=== PATIENT | female | born 1950 | race Hispanic/Latino ===

== ENCOUNTER 2018-08-20 11:39 | Day surgery (SDC) | payer MEDICARE ==
[~2018-08-20 11:39] MED LIST: IOPIDINE ONE; MYDRIACYL ONE; NEOFRIN ONE
[2018-08-20] MEDS ORDERED: MYDRIACYL OD ONE (11:55)
[2018-08-20] MEDS ORDERED: IOPIDINE OD ONE ×2 (11:55→13:00)
[2018-08-20] MEDS ORDERED: NEOFRIN OD ONE (11:55)
[2018-08-20 13:13] VITALS: BP 153/87
== END 2018-08-20 13:03 | disposition home or self-care (01) ==
LOC: OR 11:39
PROVIDERS: ATTEND Specialist
DX: H26.491 Other secondary cataract, right eye (principal); Z79.899 Other long term (current) drug therapy; Z98.41 Cataract extraction status, right eye; Z98.42 Cataract extraction status, left eye; Z90.710 Acquired absence of both cervix and uterus; Z72.89 Other problems related to lifestyle; Z98.890 Other specified postprocedural states

== ENCOUNTER 2018-08-27 11:17 | Day surgery (SDC) | payer MEDICARE ==
[2018-08-27] MEDS ORDERED: NEOFRIN OD ONE (11:37)
[2018-08-27] MEDS ORDERED: IOPIDINE OD ONE (11:37)
[2018-08-27] MEDS ORDERED: MYDRIACYL OD ONE (11:37)
[2018-08-27 14:27] VITALS: BP 133/67
== END 2018-08-27 11:18 | disposition home or self-care (01) ==
LOC: OR 11:17
PROVIDERS: ATTEND Specialist
DX: H26.492 Other secondary cataract, left eye (principal); Z79.899 Other long term (current) drug therapy; Z98.41 Cataract extraction status, right eye; Z98.42 Cataract extraction status, left eye; Z90.710 Acquired absence of both cervix and uterus; Z72.89 Other problems related to lifestyle; Z98.890 Other specified postprocedural states